=== PATIENT | male | born 1995 | race Caucasian/White ===

== ENCOUNTER → 2023-04-04 12:20 | Outpatient (BNVA) | payer SELFPAY | PROVIDERS: Family Provider Pediatrics Adolescent Medicine; Visit Provider Nurse Practitioner | DX: R50.9 Fever, unspecified (principal) | CPT/HCPCS: 87880 ==

== ENCOUNTER 2023-07-28 19:04 | Emergency (ER) | payer OTHER, SELFPAY ==
[2023-07-28 19:10] VITALS: BP 155/99; PULSE 110; RESP 16; TEMP 37.2; O2SAT 95; BMI 31.3
--- NOTE | 2023-07-28 19:19 | CTR_ITS ---
PROCEDURE INFORMATION: Exam: CT Abdomen And Pelvis With Contrast Exam date and time: 07/28/2023 7:28 PM Age: 27 years old Clinical indication: Abdominal pain; Localized; Patient HX: Lower abd pain with tarry diarrhea; Additional info: Abd pain, ? upper gi bleed TECHNIQUE: Imaging protocol: Computed tomography of the abdomen and pelvis with contrast. Axial, coronal and sagittal reformatted images were created and reviewed. Radiation optimization: All CT scans at this facility use at least one of these dose optimization techniques: automated exposure control; mA and/or kV adjustment per patient size (includes targeted exams where dose is matched to clinical indication); or iterative reconstruction. Contrast material: OMNI 350; Contrast volume: 100 ml; Contrast route: INTRAVENOUS (IV); REPORTING DATA: Count of CT and Cardiac NM exams in prior 12 months: This patient has received 0 known CTs and 0 known cardiac nuclear medicine studies in the 12 months prior to the current study. COMPARISON: No relevant prior studies available. RADIATION DOSE METRICS: Total DLP (mGy-cm): 583.99 FINDINGS: Liver: Unremarkable. Gallbladder and bile ducts: No radiodense gallstones. No biliary ductal dilatation. Pancreas: Unremarkable. Spleen: Unremarkable. Adrenal glands: Normal. No mass. Kidneys and ureters: Left renal cortical scarring. No radiodense calculi. No hydronephrosis. Stomach and bowel: Diffuse colonic under distension with questionable mild superimposed colonic wall thickening. Subtle dependent hyperattenuation in the gastric fundus (series 3, image 17), possibly ingested material. Appendix: Normal. Intraperitoneal space: No free fluid. No organized fluid collection. No free air. Vasculature: Unremarkable. No aneurysm. Lymph nodes: Small mesenteric lymph nodes, some of which are clustered along the right psoas musculature. Ra reactive pericolonic Urinary bladder: Unremarkable as visualized. Reproductive: Unremarkable. Bones/joints: No acute osseous abnormality. Soft tissues: Tiny, fat containing umbilical hernia. CT/CT abdomen pelvis w con* [id number] IMPRESSION: 1. Diffuse colonic under distension with questionable mild superimposed colonic wall thickening and small pericolonic lymph nodes. Mild nonspecific colitis could suggest this appearance. 2. Subtle dependent hyperattenuation in the gastric fundus, possibly ingested material. If there is persistent clinical concern for upper GI bleed, endoscopy may be useful. 3. Additional findings, as above.
[2023-07-28] MEDS: iohexol 350 mg/mL 500 mL Btl (per mL) IV (19:31)
[2023-07-28 19:32] LABS: Basophils # 0.1 10^3/uL (0.0-0.1); Basophils % 0.5 %; Eosinophils # 0.1 10^3/uL (0.0-0.8); Eosinophils % 0.6 %; Hematocrit 45.6 % (37-53); Lymphocytes # 0.9 10^3/uL (0.8-4.8); Lymphocytes % 8.1 %; Mean Corpuscular HGB Conc 35.3 g/dL (30-55); Mean Corpuscular Hemoglobin 29.8 pg (27-33); Mean Corpuscular Volume 84.4 fl (82-101); Mean Platelet Volume 9.2 fL (7.4-10.4); Monocytes # 0.9 10^3/uL (0.2-0.9); Monocytes % 8.5 %; Neutrophils # 8.75 10^3/uL (1.8-7.7); Nucleated Red Blood Cells % 0 %; Platelet Count 223 10^3/cmm (157-399); Red Cell Distribution Width 12.2 % (12.1-15.1); White Blood Count 10.66 10^3/uL (3.29-11.43)
[2023-07-28 19:56] LABS: INR 1.05 (0.8-1.2)
[2023-07-28 19:57] LABS: Partial Thromboplastin Time 29.8 SECONDS (23.9-36.7)
[2023-07-28 20:10] LABS: Add Urine Microscopic? YES; Bacteria Urine TRACE /hpf; Bilirubin Urine Neg (Negative); Blood Urine Neg (Negative); Glucose Urine UA Norm (Normal); Ketones Urine Negative (Negative); Leukocyte Esterase Urine Trace (Negative); Mucus Urine 1+ /hpf; Nitrate Urine Negative (Negative); Protein Urine Trace (Negative); RBC Urine 0-4 /hpf (0-2); Specific Gravity, Urine 1.005 (1.005-1.030); Squamous Epithelial Cell Urine 0-4 /hpf (0-5); Sulfosalicylic Acid Urine Negative (Negative); Urine Appearance Clear (CLEAR); Urine Color Yellow (Yellow); Urobilinogen Urine Norm (Negative); WBC Urine 0-4 /hpf (0-5); pH Urine 8 (5-7)
[2023-07-28] MEDS: sodium chloride 0.9% 1,000 ML 999 ML IV (20:10)
[2023-07-28 20:14] LABS: Alanine Aminotransferase 58 U/L (0-41); Albumin Level 4.9 g/dL (3.5-5.2); Alkaline Phosphatase 83 U/L (40-130); Anion Gap 14.7 (5-19); Aspartate Amino Transferase 44 U/L (0-40); Blood Urea Nitrogen 11 mg/dL (6-20); C Reactive Protein 17.6 mg/L (0.0-4.9); Carbon Dioxide 26 mmol/L (22-29); Chloride 101 mmol/L (98-107); Globulin 2.6 g/dL (1.3-4.6); Glomerular Filtration Rate 79.7 mL/min (90-130); Glucose 123 mg/dL (65-115); Lactic Sepsis W/Reflex 1.8 mmol/L (0.5-2.2); Lipase 29 U/L (13-60); Magnesium 1.9 mg/dL (1.7-2.3); Osmolality Calculated 287 mOsm/kg (285-295); Potassium 3.7 mmol/L (3.5-5.1); Sodium 138 mmol/L (136-145); Total Bilirubin 0.5 mg/dL (0.15-1.2); Total Protein 7.5 g/dL (6.6-8.7)
[2023-07-28 20:55] VITALS: BP 156/105; PULSE 109; RESP 16; O2SAT 97
[2023-07-28] MEDS: ondansetron 2 mg/ML SDV 2 mL 4 MG IVP (21:03)
[2023-07-28] MEDS: morphine 4 mg/mL SDV 1 mL IVP (21:05)
--- NOTE | 2023-07-28 21:50 | ED_ITS ---
HPI - Abdominal Pain 2 General: Chief Complaint: Abdominal Pain Stated Complaint: bloody diahrea and lower abd pain, dizzyness Time Seen by Provider: 07/28/23 19:17 History of Present Illness: Healthy 27-year-old male. He presents with lower abdominal pain, frequent diarrhea that he notes as black at times. He notes that he had taken Pepto- Bismol, but that the stool was black and somewhat tarry even prior to Pepto- Bismol administration. He states that he had been on the toilet no less than 30 or 40 times today. He believes he has had a temperature. No vomiting. Lower abdominal pain is present. No bright red blood. No urinary symptoms. No history of abdominal surgery. Associated Symptoms: Reports diarrhea, melena and nausea; Denies chills, fever(s), hematochezia and vomiting Review of Systems 2 Const: Denies: fever(s), chills or body aches Eyes: Denies: change in vision Card: Denies: chest pain or palpitations Resp: Denies: dyspnea, productive cough, non-productive cough or wheezing GI: Reports: abdominal pain, nausea, diarrhea and melena; Denies: vomiting or hematochezia Skin/Breast: Denies: rash Neuro: Denies: headache(s), weakness in extremities, dizziness or confusion Physical Exam 2 Const: COMMON NORMALS: no acute distress GENERAL APPEARANCE: cooperative; not ill appearing and not frail appearing HENMT: COMMON NORMALS: normocephalic, atraumatic and Normal external nose present HEAD & SCALP: normocephalic and atraumatic FACE & SINUS: normal facial exam and face symmetric NOSE: Normal external nose present Eye: COMMON NORMALS: Equal, round and reactive pupils present and EOMs intact bilaterally PUPIL: Yes Equal, round and reactive pupils present Neck/C-Spine: GENERAL: Yes trachea midline Chest: CHEST: Yes Symmetrical chest wall rise Resp: COMMON NORMALS: normal respiratory effort, No retractions, No use of accessory muscles and clear to auscultation bilaterally AUSCULTATION: clear to auscultation bilaterally Cardio: COMMON NORMALS: regular rhythm RATE: tachycardic RHYTHM: regular rhythm GI: COMMON NORMALS: Normal to inspection, nondistended, normoactive bowel sounds present PALPATION: Yes Tenderness to palpation present (GI) Details: LLQ and RLQ Extremity: COMMON NORMALS: no pedal edema Neuro: MARIA ELENA COMA SCALE: document GCS findings Maria Elena coma scale eye opening: Spontaneous Maria Elena coma scale verbal response: Orientated [place] coma scale motor response: Obey commands [place] coma scale total score: 15 S ENSORY EXAM: Yes extremities (intact) Psych: COMMON NORMALS: speech normal SPEECH: Yes normal speech Skin: COMMON NORMALS: no rashes or lesions noted GENERAL SKIN EXAM: no rashes or lesions noted Course 2 Vital Signs: Vital signs: Vital Signs Temperature 98.9 F 07/28/23 19:10 Pulse Rate 103 H 07/28/23 23:07 Respiratory Rate 18 07/28/23 23:07 Blood Pressure 129/107 07/28/23 23:07 Pulse Oximetry 96 07/28/23 23:07 Oxygen Delivery Me thod Room Air 07/28/23 20:55 MDM - Abdominal Pain Medical Decision Making Patient is not tender in the epigastric area. He is however tender in the lower quadrants bilaterally. White blood cell count is 10. CRP is minimally elevated at 18. Lactic acid is 1.8. Laboratory otherwise not remarkable. CT shows subtle dependent hyperattenuation of the gastric fundus that is most likely ingested material. There is diffuse colonic under distention with mild superimposed colonic wall thickening and some pericolonic lymph nodes suspicious for colitis. He will be treated for colitis. In case this is a small ulcer in the fundus of the stomach, he will be placed on PPI and Carafate. His hemoglobin is 16, so it is not likely that he has lost a significant amount of blood. He will need repeat CBC this coming week in a couple of days. He will need further outpatient follow-up with surgery clinic if his pain and black stools continue. Number is provided for surgery clinic follow-up, and urgency of to do so is stressed to the patient. He will return for any worsening symptoms despite treatment. Antibiotics for colitis. Lab Data 07/28/23 19:24 07/28/23 19:24 Labs/Radiology: Radiology Impressions Abdomen/Pelvis CT 07/28/23 19:19 IMPRESSION: 1. Diffuse colonic under distension with questionable mild superimposed colonic wall thickening and small pericolonic lymph nodes. Mild nonspecific colitis could suggest this appearance. 2. Subtle dependent hyperattenuation in the gastric fundus, possibly ingested material. If there is persistent clinical concern for upper GI bleed, endoscopy may be useful. 3. Additional findings, as above. Laboratory Results WBC 10.66 10^3/uL (3.29-11.43) 07/28/23 19: RBC 5.40 10^6/uL (3.85-5.65) 07/28/23 19:24 Hgb 16.10 g/dL (11.27-16.99) 07/28/23 19: Hct 45.6 % (37-53) 07/28/23 19: MCV 84.4 fl (82-101) 07/28/23 19: MCH 29.8 pg (27-33) 07/28/23 19: MCHC 35.3 g/dL (30-55) 07/28/23 19: RDW 12.2 % (12.1-15.1) 07/28/23 19: Plt Count 223 10^3/cmm (157-399) 07/28/23 19: MPV 9.2 fL (7.4-10.4) 07/28/23 19: Neut % (Auto) 82.0 % 07/28/23 19: Lymph % (Auto) 8.1 % 07/28/23 19:24 [place]ell % (Auto) 8.5 % 07/28/23 19: Eos % (Auto) 0.6 % 07/28/23 19: Baso % (Auto) 0.5 % 07/28/23 19: Neut # (Auto) 8.75 10^3/uL (1.8-7.7) H 07/28/23 19: Lymph # (Auto) 0.9 10^3/uL (0.8-4.8) 07/28/23 19:24 Howell # (Auto) 0.9 10^3/uL (0.2-0.9) 07/28/23 19: Eos # (Auto) 0.1 10^3/uL (0.0-0.8) 07/28/23 19: Baso # (Auto) 0.1 10^3/uL (0.0-0.1) 07/28/23 19: Nucleated RBC % (auto) 0 % 07/28/23 19: Nucleated RBCs # 0.0 /100WBC 07/28/23 19:24 PT 14.10 SECONDS (12.1-14.9) 07/28/23 19:24 INR 1.05 (0.8-1.2) 07/28/23 19:24 APTT 29.8 SECONDS (23.9-36.7) 07/28/23 19:24 Sodium 138 mmol/L (136-145) 07/28/23 19:24 Potassium 3.7 mmol/L (3.5-5.1) 07/28/23 19:24 Chloride 101 mmol/L (98-107) 07/28/23 19:24 Carbon Dioxide 26 mmol/L (22-29) 07/28/23 19:24 Anion Gap 14.7 (5-19) 07/28/23 19:24 BUN 11 mg/dL (6-20) 07/28/23 19:24 Creatinine 1.1 mg/dL (0.7-1.2) 07/28/23 19:24 GFR Calculation 79.7 mL/min (90-130) L 07/28/23 19:24 Glucose 123 mg/dL (65-115) H 07/28/23 19:24 Calculated Osmolality 287 mOsm/kg (285-295) 07/28/23 19:24 Lactic Acid 1.8 mmol/L (0.5-2.2) 07/28/23 19:24 Calcium 10.0 mg/dL (8.5-10.5) 07/28/23 19:24 Magnesium 1.9 mg/dL (1.7-2.3) 07/28/23 19:24 Total Bilirubin 0.5 mg/dL (0.15-1.2) 07/28/23 19:24 AST 44 U/L (0-40) H 07/28/23 19:24 ALT 58 U/L (0-41) H 07/28/23 19:24 Alkaline Phosphatase 83 U/L (40-130) 07/28/23 19:24 C-Reactive Protein 17.6 mg/L (0.0-4.9) H 07/28/23 19:24 Total Protein 7.5 g/dL (6.6-8.7) 07/28/23 19:24 Albumin 4.9 g/dL (3.5-5.2) 07/28/23 19:24 Globulin 2.6 g/dL (1.3-4.6) 07/28/23 19:24 Lipase 29 U/L (13-60) 07/28/23 19:24 Urine Color Yellow (Yellow) 07/28/23 19:54 Urine Appearance Clear (CLEAR) 07/28/23 19:54 Urine pH 8 (5-7) H 07/28/23 19:54 Ur Specific [place] 1.005 (1.005-1.030) 07/28/23 19:54 Urine Protein Trace (Negative) 07/28/23 19:54 Urine Glucose (UA) Norm (Normal) 07/28/23 19:54 Urine Ketones Negative (Negative) 07/28/23 19:54 Urine Blood Neg (Negative) 07/28/23 19:54 Urine Nitrate Negative (Negative) 07/28/23 19:54 Urine Bilirubin Neg (Negative) 07/28/23 19:54 Prot Sulfosalicylic Acd Negative (Negative) 07/28/23 19:54 Urine Urobilinogen Norm mg/dL (Negative) 07/28/23 19:54 Ur Leukocyte Esterase Trace (Negative) H 07/28/23 19:54 Urine RBC 0-4 /hpf (0-2) H 07/28/23 19:54 Urine WBC 0-4 /hpf (0-5) H 07/28/23 19:54 Ur Squamous Epith Cells 0-4 /hpf (0-5) H 07/28/23 19:54 Amorphous Sediment Not Reportable 07/28/23 19:54 Urine Bacteria Trace /hpf (NONE) 07/28/23 19:54 Urine Mucus 1+ /hpf 07/28/23 19:54 Blood Type B Positive 07/28/23 19:48 Rho(D) Type Rh positive 07/28/23 19:48 Antibody Screen Negative 07/28/23 19:48 All radiology interpretation(s) finalized by discharge Discharge Plan Discharge Patient Disposition: Home Clinical Impression: Colitis, Gastric ulcer Condition: Stable Prescriptions: New Cipro 500 mg tablet 500 mg PO BID Qty: 14 0RF metronidazole 500 mg tablet 500 mg PO Q8H 7 Days Qty: 21 0RF Percocet 7.5-325 mg tablet 1 tab PO Q6H PRN (Reason: pain) Qty: 7 0RF sucralfate 1 gram tablet 1 g PO TID 28 Days Qty: 84 0RF Prevacid 30 mg capsule,delayed release(DR/EC) 30 mg PO DAILY Qty: 30 0RF No Action azithromycin 500 mg tablet 500 mg PO DAILY 5 Days Qty: 5 0RF Discharge Orders: Discharge ED (Routine); Ordered 07/28/23 Ordered By: Phu Mendoza Referrals: Yg Neri MD [Physician] - 4-7 days Sonia Cam MD [Family Provider] - Patient Instructions: Peptic Ulcer (ED), Colitis (ED), Opioid Safety, Pain Management Activity Restrictions/Additional Instructions: Medications as directed. Take pain medication only for severe pain. Avoid the use of ibuprofen or Aleve, as it can worsen ulcer symptoms. You may take [id number] antidiarrheals as necessary. Return for fever despite 2-3 doses of antibiotics, worsening pain despite treatment, vomiting liquids or medications, avery blood or clots from your rectum, any other concerning symptoms. Call the surgery clinic Sunday morning for a follow-up appointment. If you continue to pass black stool, you should have your blood count checked this coming week as well. You may follow-up with urgent care for this, or any primary care provider, or return to the ER. Coding Level of Care Code ED Body Trimmer for Carrie Ramos
[2023-07-28] MEDS: ciprofloxacin 500 mg Tablet PO (22:34)
[2023-07-28] MEDS: pantoprazole DR 40 mg Tablet PO (22:34)
[2023-07-28] MEDS: metroNIDAZOLE 500 MG Tablet PO (22:34)
[2023-07-28] MEDS: sucralfate 1 gm Tablet PO (22:34)
[2023-07-28 23:07] VITALS: BP 129/107; PULSE 103; RESP 18; O2SAT 96
== END 2023-07-28 22:38 | disposition home or self-care (01) ==
PROVIDERS: Emergency Provider Emergency Medicine; Family Provider Pediatrics Adolescent Medicine
DX: K52.9 Noninfective gastroenteritis and colitis, unspecified (principal); K25.9 Gastric ulcer, unspecified as acute or chronic, without hemorrhage or perforation
CPT/HCPCS: 36415; 74177; 80053; 81001; 83605; 83690; 83735; 85025; 85610; 85730; 86140; 86850; 86900; 96361; 96374; 96375; 99285; J2270; J2405; J7030; Q9967

== ENCOUNTER → 2024-05-07 11:40 | Outpatient (BNVA) | payer OTHER, SELFPAY | PROVIDERS: Family Provider Pediatrics Adolescent Medicine; PCP Family Medicine Adult Medicine; Referring Provider Family Medicine; Visit Provider Surgery | DX: K52.9 Noninfective gastroenteritis and colitis, unspecified (principal) | CPT/HCPCS: 99204 ==

== ENCOUNTER 2024-05-15 08:48 | Outpatient (CLI) | payer OTHER, SELFPAY ==
--- NOTE | 2024-05-15 08:50 | US_ITS ---
WS: [id number] RIGHT UPPER QUADRANT ULTRASOUND HISTORY: ELEVATED LIVER ENZYMES COMPARISON: CT 07/28/2023 Liver: 14.7 cm in length. Normal size liver and echogenicity. No bile duct dilatation or mass. Portal Vein: Normal hepatopetal flow with monophasic waveform. Gallbladder: Normally distended gallbladder with no stones or wall thickening. CBD: 0.5 cm Pancreas: Obscured by bowel gas and body habitus. Right kidney: 11.5 cm in length. Normal size and echogenicity. No hydronephrosis or mass. Aorta and IVC: Unremarkable abdominal aorta and IVC. No ascites. US/US abdomen limited [id number] IMPRESSION: Normal right upper quadrant ultrasound.
== END 2024-05-15 08:49 | disposition home or self-care (01) ==
LOC: RAD 08:48
PROVIDERS: Family Provider Pediatrics Adolescent Medicine; PCP Family Medicine Adult Medicine; Visit Provider Family Medicine
DX: R74.01 Elevation of levels of liver transaminase levels (principal)
CPT/HCPCS: 76705

== ENCOUNTER 2024-05-27 07:22 | Day surgery (SDC) | payer OTHER, SELFPAY ==
--- NOTE | 2024-05-27 05:59 | P.HPUD_ITS ---
Surgery/Procedure H&P Update DATE OF PROCEDURE: May 27, 2024 DATE H&P PERFORMED: 05/07/24 H&P UPDATE INFORMATION: I have reviewed H&P completed within last 30 days, I have examined patient prior to procedure, No changes to prior documentation and H&P is in [facility] EMR on date indicated PLANNED PROCEDURE: Operation Date: 05/27/24 08:20 Proposed Procedures p EGD(Not Applicable) - Yg Neri MD s Colonoscopy- [id number],K52.9 ,G0105(Not Applicable) - Yg Neri MD
[2024-05-27 07:32] VITALS: BP 142/99; PULSE 94; RESP 18; TEMP 36.3; O2SAT 98; BMI 30.7
[2024-05-27] MEDS: sodium chloride 0.9% 1,000 ML 30 ML IV (07:44)
--- NOTE | 2024-05-27 07:58 | ANES.PREANE2 ---
Pre-Anesthetic Assessment Height/Weight: Height 1.7 m Weight 88.904 kg Temp Pulse Resp BP Pulse Ox O2 Del Method 97.3 F L 94 18 142/99 98 Room Air 05/27/24 07:32 05/27/24 07:32 05/27/24 07:32 05/27/24 07:32 05/27/24 07:32 05/27/24 07:32 Operation Date: 05/27/24 08:20 Proposed Procedures p EGD(Not Applicable) - Yg Neri MD s Colonoscopy- [id number],K52.9 ,G0105(Not Applicable) - Yg Neri MD Familial anesthetic complications: None Was Beta Deyanira taken within 24 hours: N/A Was Clonidine taken within 24 hours: N/A Last intake: Intake Last Liquid Date 05/26/24 Last Liquid Time 23:30 Last Solid Date 05/25/24 Last Solid Time 20:00 Social No alcohol and No tobacco Exam alert, oriented x 3, clear to auscultation bilaterally and regular rate & rhythm Airway Mallampati: Class III Dentition: chipped CV/HEM Hypertension GI Gastroesophageal Reflux Disease Anesthetic Plan ASA status: 2 Anesthesia: MAC Risk of > 500 ml blood loss (7ml/kg in children): No Medications/Allergies Home Medications Medication Instructions Recorded Confirmed Last Taken Type famotidine 20 mg tablet (Pepcid) 20 mg PO DAILY 05/07/24 05/22/24 05/22/24 History lisinopril 10 mg tablet 10 mg PO DAILY 05/07/24 05/27/24 05/25/24 History Allergies Allergy/AdvReac Type Severity Reaction Status Date / Time Penicillins Allergy Unknown Verified 05/07/24 11:46 Current Medications Generic Name Dose Route Start Last Admin Trade Name Freq PRN Reason Stop Dose Admin Sodium Chloride 1,000 mls @ 30 mls/hr 05/27/24 07:30 05/27/24 07:44 Sodium Chloride 0.9% IV 30 mls/hr .Q24H EFFIE Administration PFSH Anesthesia Medical History (Updated 05/07/24 @ 11:57 by CHATA Knutson) History of colitis HTN (hypertension) with goal to be determined Depression Anxiety Post traumatic stress disorder (PTSD) Broken clavicle Chronic back pain Frequent headaches Surgical History H/O hand surgery History of tonsillectomy Family History Father Brain tumor Hypertension Congestive heart failure (CHF) Mother Diabetes Hypertension Heart palpitations Brain herniation Social History Smoking and tobacco/nicotine status: current every day tobacco/nicotine user (vape with Zyn pouches) Quit status (tobacco/nicotine): has quit using Alcohol intake: current Alcohol intake frequency: holidays/special occasions only Alcohol type: beer and hard liquor Substance/Drug Use: never Data Anesthesia Cardiac Studies: No Data to Display
[2024-05-27 09:36] VITALS: BP 93/71; PULSE 104; RESP 16; TEMP 36.1; O2SAT 96
[2024-05-27 09:46] VITALS: BP 97/74; PULSE 88; RESP 16; O2SAT 96
[2024-05-27 10:00] VITALS: BP 107/71; PULSE 70; RESP 16; O2SAT 97
--- NOTE | 2024-05-27 10:25 | ANE.PACU2 ---
Inpatient post-anesthesia follow up: Airway intact: Yes Vital signs: Temperature 97.0 F Pulse Rate 70 Respiratory Rate 16 Blood Pressure 107/71 Pulse Oximetry 97 Oxygen Delivery Me thod Room Air Oxygen Flow Rate Fraction of Inspir ed Oxygen Hydration adequate: Yes Nausea and vomiting: No Pain level: 1 Mental status: Baseline
== END 2024-05-27 10:25 | disposition home or self-care (01) ==
PROVIDERS: Family Provider Pediatrics Adolescent Medicine; PCP Family Medicine; Visit Provider Surgery
PROC: 0DJ08ZZ Inspection of Upper Intestinal Tract, Via Natural or Artificial Opening Endoscopic (ICD-10-PCS; CPT 43235; principal; 2024-05-27 08:20)
PROC: 0DJD8ZZ Inspection of Lower Intestinal Tract, Via Natural or Artificial Opening Endoscopic (ICD-10-PCS; CPT 45378; 2024-05-27 08:20)
DX: K52.9 Noninfective gastroenteritis and colitis, unspecified (principal); I10 Essential (primary) hypertension; F32.A Depression, unspecified; F41.9 Anxiety disorder, unspecified; F17.200 Nicotine dependence, unspecified, uncomplicated
CPT/HCPCS: 43239; 45380; 88305; J2704; J7030

== ENCOUNTER → 2024-06-10 09:12 | Outpatient (BNVA) | payer OTHER, SELFPAY | PROVIDERS: Family Provider Pediatrics Adolescent Medicine; PCP Family Medicine; Visit Provider Surgery | DX: Z87.19 Personal history of other diseases of the digestive system (principal); Z09 Encounter for follow-up examination after completed treatment for conditions other than malignant neoplasm | CPT/HCPCS: 99214 ==

== ENCOUNTER 2024-09-16 09:16 | Outpatient (CLI) | payer OTHER, SELFPAY ==
--- NOTE | 2024-09-16 09:26 | MR_ITS ---
WS: [id number] MRI BRAIN WITH AND WITHOUT CONTRAST HISTORY: HERNANDEZ, FAMILY HX OF BRAIN ANEURYSM COMPARISON: None available. TECHNIQUE: Multiplanar imaging performed through the brain with MultiHance 20 ml's IV. No acute infarcts are seen. [place]-white matter differentiation is well preserved. No susceptibility artifacts or prior lacunar infarcts. Ventricles and extra-axial spaces are normal. Clivus and pituitary gland are normal. Visualized posterior fossa and brainstem are also normal. Postcontrast images are negative for masses or vascular malformations. Normal flow voids and enhancement in the cheesh-na of [place]. Dural venous sinuses are normal. Paranasal sinuses: Well aerated with no significant disease. Mastoid air cells: Normal. Calvarium and scalp: Normal. MR/MR head wo/w con [id number] IMPRESSION: 1. Normal MRI brain with contrast. 2. Normal enhancement of the cheesh-na of [place]. MRA cheesh-na of [place] would bett er evaluate the arteries for aneurysm.
[2024-09-16] MEDS: gadobenate dimeglumine 20 mL vial IV (10:09)
== END 2024-09-16 09:17 | disposition home or self-care (01) ==
PROVIDERS: Family Provider Pediatrics Adolescent Medicine; PCP Family Medicine; Visit Provider Family Medicine
DX: Z01.89 Encounter for other specified special examinations (principal)
CPT/HCPCS: 70553

== ENCOUNTER 2025-03-12 13:22 | Outpatient (CLI) | payer OTHER, SELFPAY ==
--- NOTE | 2025-03-12 13:31 | MR_ITS ---
WS: [id number] MRI RIGHT SHOULDER NONCONTRAST TECHNIQUE: Sagittal T2, coronal T1, T2 and proton density imaging. Axial gradient PDE imaging. CLINICAL INFORMATION: R SHOULDER PAIN COMPARISON: None. 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 Mild downsloping of the acromion with slight subacromial spurring. Slight impingement distal supraspinatus. Tiny interstitial tear in the supraspinatus deep to the acromion. Supraspinatus and infraspinatus are othe rwise normal in appearance. Normal infraspinatus. Normal teres minor. Subscapularis tendon is intact. The transverse humeral ligament is intact. Biceps tendon appears intact within the bicipital groove. Intra-articular biceps tendon appears intact. Mild tendinopathy intra-articular biceps tendon with increased signal. Glenoid labrum appears grossly intact. Normal bone marrow signal in the humerus and glenoid. MR/MR shoulder RT wo con* [id number] IMPRESSION: 1. 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 Mild downsloping acromion with slight impingement on the distal supraspinatus. 2. Tiny intrasubstance interstitial tear in the supraspinatus deep to the acro mion. 3. Rotator cuff is otherwise normal in appearance. 4. Normal biceps tendon in the bicipital groove. 5. Intra-articular biceps tendon is intact. Mild tendinopathy intra-articular biceps tendon with increased signal. 6. No other acute findings.
== END 2025-03-12 13:23 | disposition home or self-care (01) ==
LOC: RAD 13:23
PROVIDERS: Family Provider Pediatrics Adolescent Medicine; PCP Family Medicine; Visit Provider Family Medicine Geriatric Medicine
DX: M19.011 Primary osteoarthritis, right shoulder (principal)
CPT/HCPCS: 73221

== ENCOUNTER → 2025-05-26 10:31 | Outpatient (BNVA) | payer OTHER, SELFPAY | PROVIDERS: Family Provider Pediatrics Adolescent Medicine; PCP Family Medicine; Visit Provider Orthopaedic Surgery | DX: M25.511 Pain in right shoulder (principal) | CPT/HCPCS: 73030 ==

== ENCOUNTER → 2025-07-13 08:46 | Outpatient (BNVA) | payer OTHER, SELFPAY | PROVIDERS: Family Provider Pediatrics Adolescent Medicine; PCP Family Medicine; Visit Provider Dermatology | DX: L21.8 Other seborrheic dermatitis (principal); L72.0 Epidermal cyst | CPT/HCPCS: 99204 ==